=== PATIENT | male | born 1990 | race Caucasian/White ===

== ENCOUNTER 2023-01-16 08:36 | Emergency (ER) | payer MEDICAID ==
[~2023-01-16] VITALS: Ht 175 cm; Wt 82.0 kg
--- NOTE | 2023-01-16 09:02 | ED GU-Male ---
General Chief Complaint: - Reproductive Stated Complaint: SWOLLEN TESTICLES | VOMITING Nursing Triage Note: PT AMB TO RM 10 PT STATES STARTED HAVING L SIDED TESTICLE PAIN, WAS SEEN ON 01/14 @ [facility] ED. STATES HAD SONO AND WAS TOLD NO SX OF INFECTION. PT HERE TODAY CO OF N/V AND INCREASED SWELLING IN L TESTICLE RATES PAIN 03/23 Source: patient Exam Limitations: no limitations History of Present Illness Date Seen by Provider: Jan 16, 2023 Time Seen by Provider: 08:53 Initial Comments 32-year-old male presents for left testicular pain and swelling. States pain is causing him to be nauseated. Symptoms started about a week ago. He went to [facility] 2 days ago and had an ultrasound which he states was negative for infection. He denies any fevers or chills. His bowel movements are normal. He states he usually urinates every 8-12 hours and this has been normal for him. No dysuria, hematuria. He has had twinges of pain in this area in the past but never consistent pain and has never had the swelling previously. All other systems reviewed and negative except documented per HPI. Voice recognition software was used to help create this chart Allergies and Home Medications Allergies Coded Allergies: No Known Drug Allergies (Unverified , 01/16/23) Patient Home Medication List Home Medication List Reviewed: Yes Review of Systems Review of Systems Constitutional: see HPI Past Pjicalj-Ajwayk-Lrzjso Hx Patient Social History Tobacco Use?: Yes Tobacco type used: Cigarettes Substance use?: Yes Substance type: Marijuana Substance frequency: Daily Alcohol Use?: Yes Alcohol Frequency: Once in a while Pt feels they are or have been: No Past Medical History Surgery/Hospitalization HX: DENIES Physical Exam Vital Signs Vital Signs - First Documented 01/16/23 08:40 Temp 36.9 Pulse 73 Resp 16 B/P (MAP) 151/104 (120) Pulse Ox 100 Capillary Refill : Less Than 3 Seconds Height, Weight, BMI Height: '" Weight: lbs. oz. kg; 26.00 BMI Method: General Appearance: WD/WN, no apparent distress Neck: full range of motion, supple, normal inspection Cardiovascular: regular rate, rhythm, no murmur Respiratory: chest non-tender, lungs clear, normal breath sounds Gastrointestinal: normal bowel sounds, non tender, soft Genital/Rectal: other (Left testicle is swollen within the scrotum. The scrotum itself is normal. There is tenderness to palpation. It does feel firm when compared to the right. Normal cremasteric reflex.) Extremities: non-tender, normal inspection Neurologic/Psychiatric: alert, oriented x 3 Skin: normal color, warm/dry Progress/Results/Core Measures Suspected Sepsis SIRS Temperature: Pulse: 73 Respiratory Rate: 16 Blood Pressure 151 /104 Mean: 120 Results/Orders My Orders Orders - MEENAKSHI WHITING DO Us Scrotum (Testicle) 88120 (01/16/23 08:59) Doxycycline Hyclate Tablet (Vibramycin T (01/16/23 09:30) Ibuprofen Tablet (Motrin Tablet) (01/16/23 09:30) Ondansetron Oral Dissolve Tab (Zofran (01/16/23 09:30) Vital Signs/I&O 01/16/23 08:40 Temp 36.9 Pulse 73 Resp 16 B/P (MAP) 151/104 (120) Pulse Ox 100 Capillary Refill : Less Than 3 Seconds Blood Pressure Mean: 120 Departure Communication (Admissions) Ultrasound shows no evidence for torsion or other emergent condition. He does have significant epididymitis on this side. He is given p.o. doxycycline ibuprofen and Zofran here and discharged with the same. Impression Primary Impression: Epididymitis Disposition: 01 HOME, SELF-CARE Condition: Stable Departure-Patient Inst. Referrals: NO,LOCAL PHYSICIAN (PCP/Family) Primary Care Physician Patient Instructions: Epididymitis Add. Discharge Instructions: Take the antibiotics as prescribed until they are gone. Increase your fluids at home and rest. Use ibuprofen and Tylenol as needed for pain. I prescribed you nausea medicine, take it as needed by dissolving it under your tongue. Return to the emergency department for any severe concerns. Follow-up with your primary doctor should your symptoms persist. All discharge instructions reviewed with patient and/or family. Voiced understanding. Scripts Ondansetron (Ondansetron Odt) 8 Mg Tab.rapdis 8 MG SL Q6H PRN for NAUSEA/VOMITING for 5 Days, #20 TAB Prov: MEENAKSHI WHITING DO 01/16/23 Doxycycline Hyclate (Doxycycline Hyclate) 100 Mg Tablet 100 MG PO BID for 14 Days, #28 TAB Prov: MEENAKSHI WHITING DO 01/16/23 MEENAKSHI WHITING DO Jan 16, 2023 09:02
[2023-01-16] MEDS ORDERED: DOXYCYCLINE 100 MG (VIBRAMYCIN) TABLET PO STA (09:30)
[2023-01-16] MEDS ORDERED: ONDANSETRON 4 MG (ZOFRAN) ORAL DISSOLVE TAB PO STA (09:30)
[2023-01-16] MEDS ORDERED: IBUPROFEN 600 MG (MOTRIN) TAB PO ONE (09:30)
[2023-01-16] MEDS ORDERED: DOXY100T2 PO (09:37)
[2023-01-16] MEDS ORDERED: ONDA8TAB13 SL (09:37)
[2023-01-16 09:49] VITALS: BP 134/82
--- NOTE | 2023-01-16 09:53 | Diagnostic Imaging Report ---
EXAMINATION: US Scrotum w/ Duplex TECHNIQUE: Multiple realtime gabriel images were obtained of the scrotum in various projections bilaterally. Color Doppler images were also obtained. HISTORY: L testicle pain, swelling COMPARISON: None available. FINDINGS: The right testicle measures 4.9 x 2.5 x 2.5 cm. The left testicle measures 4.5 x 3.3 x 3.3 cm.. Both testis are normal in echogenicity. No mass is seen. Small bilateral hydroceles. There is no varicocele. Both epididymides demonstrates increased vascularity without suspicious mass. Duplex images reveal normal arterial inflow to both testis. IMPRESSION: Findings concerning for orchitis epididymitis. Small bilateral hydroceles. Dictated by: Dictated on workstation # [id number]
== END 2023-01-16 09:52 | disposition home or self-care (01) ==
LOC: ER 08:40
DX: N45.1 Epididymitis (principal); F17.210 Nicotine dependence, cigarettes, uncomplicated
CPT/HCPCS: 76870